=== PATIENT | female | born 1995 | race Hispanic/Latino ===

== ENCOUNTER 2019-02-20 22:36 | Emergency (ER) | payer BC, SELFPAY ==
[2019-02-21] MEDS ORDERED: NA CHLORIDE 0.9% 1,000 ML ONE (00:19)
[2019-02-21 01:10] LABS: Absolute Lymphocytes (CBC) 1.7 K/uL (0.7-4.9); Absolute Monocytes 0.6 K/uL (0.1-1.3); Absolute Neutrophil 6.2 K/uL (1.8-8.0); Basophils % 0.4 % (0-1.3); Eosinophils % 0.6 % (0-4.4); Hematocrit 29.7 % (36.0-45.0); Lymphocytes % 19.6 % (15.3-44.8); MPV 7.4 fL (7.6-11.3); Monocytes % 7.6 % (3.3-12.3); RBC Red Blood Cell Count 3.64 M/uL (3.86-4.86)
[2019-02-21 01:16] LABS: BUN Blood Urea Nitrogen 6 mg/dL (7-18); Bicarbonate 26 mmol/L (21-32); Glucose Level 106 mg/dL (74-106); Potassium 3.7 mmol/L (3.5-5.1); Sodium Level 141 mmol/L (136-145)
[2019-02-21] MEDS ORDERED: MORPHINE 2 MG/ML SYR ONE (01:40)
[2019-02-21] MEDS ORDERED: ONDANSETRON 4 MG/2 ML VIAL ONE (01:40)
--- NOTE | 2019-02-21 01:53 | ER ---
Nurse's Notes [facility] Name: Mona Jett Age: 23 yrs Sex: Female : 1995 Arrival Date: 02/20/2019 Time: 22:41 Bed 20 Private MD: Diagnosis: related conditions, unspecified, second trimester; related conditions, unspecified, third trimester;Abdominal tenderness;Anemia, unspecified Presentation: 02/20 22:43 Presenting complaint: Patient states: Sharp RLQ pain for the last 5 weeks, pt is 27 la1 weeks . PT cleared by Labor and delivery including cath urine. Transition of care: patient was not received from another setting of care. Onset of symptoms was February 20, 2019. Risk Assessment: Do you want to hurt yourself or someone else? Patient reports no desire to harm self or others. Initial Sepsis Screen: Does the patient meet any 2 criteria? No. Patient's initial sepsis screen is negative. Does the patient have a suspected source of infection? No. Patient's initial sepsis screen is negative. Care prior to arrival: None. 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 - Social history:: Smoking status: Patient/guardian denies using tobacco. - Ebola Screening: : No symptoms or risks identified at this time. - Family history:: not pertinent. Screenin/28 00:15 Abuse screen: Denies threats or abuse. Denies injuries from another. Nutritional rr5 screening: No deficits noted. Tuberculosis screening: No symptoms or risk factors identified. Fall Risk IV access (20 points). Total Arboleda Fall Scale indicates No Risk (0-24 pts). Assessment: 00:05 General: Appears in no apparent distress. uncomfortable, Behavior is calm, cooperative, rr5 appropriate for age. Pain: Complains of pain in right lower quadrant Pain does not radiate. Pain currently is 6 out of 10 on a pain scale. Quality of pain is described as aching, Pain began gradually, Is intermittent. 00:05 Neuro: Level of Consciousness is awake, alert, obeys commands, Oriented to person, rr5 place, time, situation, Appropriate for age. Cardiovascular: Capillary refill < 3 seconds Patient's skin is warm and dry. Respiratory: Airway Respiratory effort is even, unlabored, Respiratory pattern is regular, symmetrical. GI: Abdomen is round Bowel sounds present X 4 quads. 27 weeks . : No signs and/or symptoms were reported regarding the genitourinary system. EENT: No signs and/or symptoms were reported regarding the EENT system. Derm: Skin is intact, Skin temperature is warm. Musculoskeletal: Capillary refill < 3 seconds, Range of motion: intact in all extremities. 01:00 Reassessment: Patient appears in no apparent distress at this time. Patient is alert, rr5 oriented x 3, equal unlabored respirations, skin warm/dry/pink. awaiting for result. no complaints made. 01:20 Reassessment: Patient appears in no apparent distress at this time. chatting with her rr5 traffic engineering director at bedside. 02:05 Reassessment: Patient appears in no apparent distress at this time. Patient is alert, rr5 oriented x 3, equal unlabored respirations, skin warm/dry/pink. pain free as verbalized. for transfer to [facility]. Patient states feeling better. Patient states symptoms have improved. 03:15 Reassessment: endorsed to [facility] vitally stable. no complaints made. with IV cannula rr5 intact. Vital Signs: 02/20 22:44 Pulse 77; Resp 18; Temp 98.4(TE); Pulse Ox 100% on R/A; Weight 58.97 kg; Height 5 ft. 0 la1 in. (152.40 cm); Pain 6/10; 22:46 BP 106 / 70; la1 02/21 00:00 BP 105 / 65; Pulse 75; Resp 17; Pulse Ox 98% on R/A; rr5 01:00 BP 102 / 66; Pulse 71; Resp 18; Temp 98.1; Pulse Ox 100% ; rr5 02:14 BP 100 / 69; Pulse 71; Resp 17; Temp 98; Pulse Ox 99% ; Pain 0/10; rr5 03:06 BP 103 / 71; Pulse 75; Resp 17; Pulse Ox 98% on R/A; rr5 02/20 22:44 Body Mass Index 25.39 (58.97 kg, 152.40 cm) la1 Vitals: 00:15 Heart Tones 152 bpm. rr5 ED Course: 02/20 22:41 Patient arrived in ED. mr 22:44 Triage completed. la1 22:46 Arm band placed on left wrist. la1 23:52 Mele Andrews MD is Attending Physician. dianna 02/21 00:04 Mj Walton RN is Primary Nurse. rr5 00:10 Patient has correct armband on for positive identification. Placed in gown. Bed in low rr5 position. Call light in reach. Side rails up X 1. 00:16 Inserted saline lock: 20 gauge in right antecubital area, using aseptic technique. oe Blood collected. 02:30 No provider procedures requiring assistance completed. Patient transferred, IV remains rr5 in place. intact, No redness/swelling at site. Administered Medications: 00:10 Drug: NS 0.9% 1000 ml Route: IV; Rate: 1 bolus; Site: right antecubital; rr5 01:20 Follow up: Response: No adverse reaction; IV Status: Completed infusion; IV Intake: rr5 1000ml 01:20 Drug: Zofran 4 mg Route: IVP; Site: right antecubital; rr5 02:44 Follow up: Response: No adverse reaction rr5 01:22 Drug: morphine 2 mg Route: IVP; Site: right antecubital; rr5 02:45 Follow up: Response: No adverse reaction rr5 02:45 Not Given (pain free as verbalized): morphine 2 mg IVP once rr5 Intake: 01:20 IV: 1000ml; Total: 1000ml. rr5 02:30 voided freely rr5 Output: 02:30 Other: 1; Total: 0ml. rr5 02:30 voided freely rr5 Outcome: 01:53 ER care complete, transfer ordered by . [facility] 02:30 Transferred by ground EMS to [facility], Transfer form rr5 completed. Note: spoke to [facility] staff and accepted the case 02:30 Condition: stable 02:30 Instructed on the need for transfer. 03:19 Patient left the ED. rr5 Signatures: Mele Andrews MD MD cha Rivera, Geraldine mr Tomasz Vazquez RN RN la1 Nickolas Little Raymond, RN RN rr5 Corrections: (The following items were deleted from the chart) 02/20 22:47 22:43 Presenting complaint: Patient states: Sharp RLQ pain for the last 5 weeks, pt is la1 27 weeks . la1
--- NOTE | 2019-02-21 01:53 | EDPHYS ---
Physician Documentation [facility] Name: Mona Jett Age: 23 yrs Sex: Female : 1995 Arrival Date: 02/20/2019 Time: 22:41 Bed 20 Private MD: ED Physician Mele Andrews HPI: 02/21 00:36 This 23 yrs old Female presents to ER via Ambulatory with complaints of 27 wks dianna , Abdominal Pain. 00:36 The patient presents to the emergency department with abdominal pain, of the right dianna lower quadrant, that started 35 day(s) ago. The estimated gestational age is 27 weeks. course: care: at a clinic. Previous pregnancies: the patient has never been . Associated signs and symptoms: The patient has no apparent associated signs or symptoms. The patient has not experienced similar symptoms in the past. 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 - Social history:: Smoking status: Patient/guardian denies using tobacco. - Ebola Screening: : No symptoms or risks identified at this time. - Family history:: not pertinent. ROS: 02/21 00:36 Constitutional: Negative for fever, chills, and weight loss, Eyes: Negative for injury, dianna pain, redness, and discharge, ENT: Negative for injury, pain, and discharge, Neck: Negative for injury, pain, and swelling, Cardiovascular: Negative for chest pain, palpitations, and edema, Respiratory: Negative for shortness of breath, cough, wheezing, and pleuritic chest pain, Back: Negative for injury and pain, : Negative for injury, bleeding, discharge, and swelling, MS/Extremity: Negative for injury and deformity, Skin: Negative for injury, rash, and discoloration, Neuro: Negative for headache, weakness, numbness, tingling, and seizure, Psych: Negative for depression, anxiety, suicide ideation, homicidal ideation, and hallucinations, Allergy/Immunology: Negative for hives, rash, and allergies, Endocrine: Negative for neck swelling, polydipsia, polyuria, polyphagia, and marked weight changes, Hematologic/Lymphatic: Negative for swollen nodes, abnormal bleeding, and unusual bruising. Abdomen/GI: Positive for abdominal pain, of the right lower quadrant. Exam: 00:36 Constitutional: This is a well developed, well nourished patient who is awake, alert, dianna and in no acute distress. Head/Face: Normocephalic, atraumatic. Eyes: Pupils equal round and reactive to light, extra-ocular motions intact. Lids and lashes normal. Conjunctiva and sclera are non-icteric and not injected. Cornea within normal limits. Periorbital areas with no swelling, redness, or edema. ENT: Nares patent. No nasal discharge, no septal abnormalities noted. Tympanic membranes are normal and external auditory canals are clear. Oropharynx with no redness, swelling, or masses, exudates, or evidence of obstruction, uvula midline. Mucous membranes moist. Neck: Trachea midline, no thyromegaly or masses palpated, and no cervical lymphadenopathy. Supple, full range of motion without nuchal rigidity, or vertebral point tenderness. No Meningismus. Chest/axilla: Normal chest wall appearance and motion. Nontender with no deformity. No lesions are appreciated. Cardiovascular: Regular rate and rhythm with a normal S1 and S2. No gallops, murmurs, or rubs. Normal PMI, no JVD. No pulse deficits. Respiratory: Lungs have equal breath sounds bilaterally, clear to auscultation and percussion. No rales, rhonchi or wheezes noted. No increased work of breathing, no retractions or nasal flaring. Back: No spinal tenderness. No costovertebral tenderness. Full range of motion. Female : Normal external genitalia. Skin: Warm, dry with normal turgor. Normal color with no rashes, no lesions, and no evidence of cellulitis. MS/ Extremity: Pulses equal, no cyanosis. Neurovascular intact. Full, normal range of motion. Neuro: Awake and alert, GCS 15, oriented to person, place, time, and situation. Cranial nerves II-XII grossly intact. Motor strength 5/5 in all extremities. Sensory grossly intact. Cerebellar exam normal. Normal gait. Psych: Awake, alert, with orientation to person, place and time. Behavior, mood, and affect are within normal limits. 00:36 Abdomen/GI: Inspection: gravid appearance, Bowel sounds: normal, Palpation: moderate abdominal tenderness, in the right lower quadrant, Liver: no appreciated palpable abnormalities, Hernia: not appreciated. Vital Signs: 02/20 22:44 Pulse 77; Resp 18; Temp 98.4(TE); Pulse Ox 100% on R/A; Weight 58.97 kg; Height 5 ft. 0 la1 in. (152.40 cm); Pain 6/10; 22:46 BP 106 / 70; la1 02/21 00:00 BP 105 / 65; Pulse 75; Resp 17; Pulse Ox 98% on R/A; rr5 01:00 BP 102 / 66; Pulse 71; Resp 18; Temp 98.1; Pulse Ox 100% ; rr5 02:14 BP 100 / 69; Pulse 71; Resp 17; Temp 98; Pulse Ox 99% ; Pain 0/10; rr5 03:06 BP 103 / 71; Pulse 75; Resp 17; Pulse Ox 98% on R/A; rr5 02/20 22:44 Body Mass Index 25.39 (58.97 kg, 152.40 cm) la1 MDM: 02/20 23:52 Patient medically screened. [facility] 02/21 00:38 Data reviewed: vital signs, nurses notes, lab test result(s), radiologic studies, dianna ultrasound. 02/20 23:55 Order name: Abo/rh Typing; Complete Time: 01:48 [facility] 02/20 23:55 Order name: Basic Metabolic Panel; Complete Time: 01:39 [facility] 02/20 23:55 Order name: CBC with Diff; Complete Time: 01:39 [facility] 02/20 23:55 Order name: Urine Culture [facility] 02/21 02:32 Order name: Urine Dipstick--Ancillary (enter results) 02/21 02:32 Order name: Urine --Ancillary (enter results) 02/20 23:55 Order name: Urine Test (obtain specimen); Complete Time: 02:33 [facility] 02/20 23:55 Order name: IV Saline Lock; Complete Time: 00:15 [facility] 02/20 23:55 Order name: Labs collected and sent; Complete Time: 00:15 [facility] 02/21 00:36 Order name: US OB Limited [facility] 02/20 23:55 Order name: NPO; Complete Time: 00:29 [facility] 02/20 23:55 Order name: Urine Dipstick-Ancillary (obtain specimen); Complete Time: 02:33 [facility] 02/20 23:55 Order name: FHT's; Complete Time: 00:29 [facility] Administered Medications: 00:10 Drug: NS 0.9% 1000 ml Route: IV; Rate: 1 bolus; Site: right antecubital; rr5 01:20 Follow up: Response: No adverse reaction; IV Status: Completed infusion; IV Intake: rr5 1000ml 01:20 Drug: Zofran 4 mg Route: IVP; Site: right antecubital; rr5 02:44 Follow up: Response: No adverse reaction rr5 01:22 Drug: morphine 2 mg Route: IVP; Site: right antecubital; rr5 02:45 Follow up: Response: No adverse reaction rr5 02:45 Not Given (pain free as verbalized): morphine 2 mg IVP once rr5 Disposition: 02/21/19 01:53 Transfer ordered to [facility]. Diagnosis are related conditions, unspecified, second trimester, related conditions, unspecified, third trimester, Abdominal tenderness, Anemia, unspecified. - Reason for transfer: Higher level of care. - Accepting physician is to [facility] global compensation director. - Condition is Fair. - Problem is new. - Symptoms have improved. Signatures: Dispatcher [employer] EDMele Lopez MD MD cha Attema, Lee RN RN la1 Mj Walton RN RN rr5 Corrections: (The following items were deleted from the chart) 02:02 01:53 02/21/2019 01:53 Transfer ordered to [facility]. Diagnosis is dianna related conditions, unspecified, second trimester; related conditions, unspecified, third trimester; Abdominal tenderness. Reason for transfer: Higher level of care. Accepting physician is to [facility] global compensation director. Condition is Fair. Problem is new. Symptoms have improved. [facility] 03:19 02:02 02/21/2019 01:53 Transfer ordered to [facility]. Diagnosis is rr5 related conditions, unspecified, second trimester; related conditions, unspecified, third trimester; Abdominal tenderness; Anemia, unspecified. Reason for transfer: Higher level of care. Accepting physician is to [facility] global compensation director. Condition is Fair. Problem is new. Symptoms have improved. dianna
[2019-02-21 04:41] LABS: Urine Blood NEGATIVE (NEG); Urine Glucose NEGATIVE (NEG); Urine Protein NEGATIVE (NEG); Urine Specific Gravity 1.015 (1.005-1.030)
== END 2019-02-21 03:19 | disposition short-term general hospital (02) ==
LOC: ER 22:36
DX: O99.012 Anemia complicating pregnancy, second trimester (principal); D64.9 Anemia, unspecified; Z3A.27 27 weeks gestation of pregnancy; Z88.8 Allergy status to other drugs, medicaments and biological substances
CPT/HCPCS: 36415; 80048; 81003; 81025; 85025; 86900; 86901; 87086; 87088; J2270; J2405; J7030

== ENCOUNTER 2022-05-02 23:25 | Emergency (ER) | payer BC ==
--- NOTE | 2022-05-03 01:24 | EDPHYS ---
Physician Documentation [facility] Name: Mona Jett Age: 26 yrs Sex: Female : 1995 Arrival Date: 05/02/2022 Time: 23:28 Bed 17 Private MD: ED Physician Mele Andrews HPI: 05/03 01:20 This 26 yrs old Female presents to ER via Ambulatory with complaints of LRQ dianna pain. 01:20 The patient presents with abdominal pain in the left lower quadrant. Onset: The dianna symptoms/episode began/occurred yesterday. The symptoms do not radiate. Associated signs and symptoms: none. The symptoms are described as crampy. Modifying factors: The symptoms are alleviated by nothing, the symptoms are aggravated by nothing. Severity of pain: At its worst the pain was mild in the emergency department the pain has resolved. The patient has not experienced similar symptoms in the past. 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 - Social history:: Smoking status: Patient denies any tobacco usage or history of. Patient/guardian denies using alcohol. - Family history:: not pertinent. ROS: 05/03 01:20 Constitutional: Negative for fever, chills, and weight loss, Eyes: Negative for injury, dianna pain, redness, and discharge, ENT: Negative for injury, pain, and discharge, Neck: Negative for injury, pain, and swelling, Cardiovascular: Negative for chest pain, palpitations, and edema, Respiratory: Negative for shortness of breath, cough, wheezing, and pleuritic chest pain, Back: Negative for injury and pain, : Negative for injury, bleeding, discharge, and swelling, MS/Extremity: Negative for injury and deformity, Skin: Negative for injury, rash, and discoloration, Neuro: Negative for headache, weakness, numbness, tingling, and seizure. Abdomen/GI: Positive for abdominal pain, of the left lower quadrant. Exam: 01:20 Constitutional: This is a well developed, well nourished patient who is awake, alert, dianna and in no acute distress. Head/Face: Normocephalic, atraumatic. Eyes: Pupils equal round and reactive to light, extra-ocular motions intact. Lids and lashes normal. Conjunctiva and sclera are non-icteric and not injected. Cornea within normal limits. Periorbital areas with no swelling, redness, or edema. ENT: Nares patent. No nasal discharge, no septal abnormalities noted. Tympanic membranes are normal and external auditory canals are clear. Oropharynx with no redness, swelling, or masses, exudates, or evidence of obstruction, uvula midline. Mucous membranes moist. Neck: Trachea midline, no thyromegaly or masses palpated, and no cervical lymphadenopathy. Supple, full range of motion without nuchal rigidity, or vertebral point tenderness. No Meningismus. Chest/axilla: Normal chest wall appearance and motion. Nontender with no deformity. No lesions are appreciated. Cardiovascular: Regular rate and rhythm with a normal S1 and S2. No gallops, murmurs, or rubs. Normal PMI, no JVD. No pulse deficits. Respiratory: Lungs have equal breath sounds bilaterally, clear to auscultation and percussion. No rales, rhonchi or wheezes noted. No increased work of breathing, no retractions or nasal flaring. Abdomen/GI: Soft, non-tender, with normal bowel sounds. No distension or tympany. No guarding or rebound. No evidence of tenderness throughout. Back: No spinal tenderness. No costovertebral tenderness. Full range of motion. Female : Normal external genitalia. Skin: Warm, dry with normal turgor. Normal color with no rashes, no lesions, and no evidence of cellulitis. MS/ Extremity: Pulses equal, no cyanosis. Neurovascular intact. Full, normal range of motion. Neuro: Awake and alert, GCS 15, oriented to person, place, time, and situation. Cranial nerves II-XII grossly intact. Motor strength 5/5 in all extremities. Sensory grossly intact. Cerebellar exam normal. Normal gait. Psych: Awake, alert, with orientation to person, place and time. Behavior, mood, and affect are within normal limits. Vital Signs: 05/02 23:43 BP 124 / 84; Pulse 59; Resp 18; Temp 97.7(TE); Pulse Ox 99% on R/A; Weight 58.97 kg; ld1 Height 5 ft. 0 in. (152.40 cm); Pain 9/10; 23:43 Body Mass Index 25.39 (58.97 kg, 152.40 cm) ld1 MDM: 05/03 00:57 Patient medically screened. [facility] 01:22 Differential diagnosis: non-specific abd pain, urinary tract infection. Data reviewed: [facility] vital signs, nurses notes. Data interpreted: awake overnight monitor: rate is 59 beats/min, rhythm is regular, Pulse oximetry: on room air is 99 %. Counseling: I had a detailed discussion with the patient and/or guardian regarding: the historical points, exam findings, and any diagnostic results supporting the discharge/admit diagnosis. Medical screen evaluation completed. EMTALA emergency medical condition absent. Administered Medications: No medications were administered Disposition Summary: 05/03/22 01:24 Discharge Ordered Location: Home [facility] Problem: new dianna Symptoms: have improved dianna Condition: Stable dianna Diagnosis - Pelvic and perineal pain - sp 1 week dianna Followup: dianna - With: Private Physician - When: 1 - 2 days - Reason: Recheck today's complaints, Continuance of care, Re-evaluation by your physician Discharge Instructions: - Discharge Summary Sheet dianna - Abdominal Pain, Adult dianna - Pain Without a Known Cause dianna - Pelvic Pain, Female dianna - Pelvic Pain, Female, [id number] dianna Forms: - Medication Reconciliation Form dianna - Thank You Letter dianna - Antibiotic Education dianna - Prescription Opioid Use dianna Signatures: Mele Andrews MD MD cha Dibbern, Lauren, RN RN ld1
--- NOTE | 2022-05-03 01:24 | ER ---
Nurse's Notes [facility] Name: Mona Jett Age: 26 yrs Sex: Female : 1995 Arrival Date: 05/02/2022 Time: 23:28 Bed 17 Private MD: Diagnosis: Pelvic and perineal pain-sp 1 week Presentation: 05/02 23:43 Chief complaint: Patient states: RLQ pain X 1 hour. Pt reports recent . Never had ld1 this pain before. Coronavirus screen: At this time, the client does not indicate any symptoms associated with coronavirus-19. Ebola Screen: No symptoms or risks identified at this time. Initial Sepsis Screen: Does the patient meet any 2 criteria? No. Patient's initial sepsis screen is negative. Does the patient have a suspected source of infection? No. Patient's initial sepsis screen is negative. Risk Assessment: Do you want to hurt yourself or someone else? Patient reports no desire to harm self or others. Onset of symptoms was May 02, 2022. 23:43 Method Of Arrival: Ambulatory ld1 23:43 Acuity: MACY 3 ld1 Triage Assessment: 23:44 General: Appears in no apparent distress. comfortable, Behavior is calm, cooperative, ld1 appropriate for age. Pain: Complains of pain in right lower quadrant and right femoral area Pain does not radiate. Pain currently is 9 out of 10 on a pain scale. Quality of pain is described as sharp, shooting, throbbing. EENT: No signs and/or symptoms were reported regarding the EENT system. Neuro: Level of Consciousness is awake, alert, obeys commands, Oriented to person, place, time, situation. Cardiovascular: Capillary refill < 3 seconds Patient's skin is warm and dry. Respiratory: Airway is patent Respiratory effort is even, unlabored. GI: Abdomen is round non-distended, Reports lower abdominal pain. : No signs and/or symptoms were reported regarding the genitourinary system. Derm: No signs and/or symptoms reported regarding the dermatologic system. Musculoskeletal: No signs and/or symptoms reported regarding the musculoskeletal system. 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 - Social history:: Smoking status: Patient denies any tobacco usage or history of. Patient/guardian denies using alcohol. - Family history:: not pertinent. Screenin/08 01:27 Abuse screen: Denies threats or abuse. Denies injuries from another. Nutritional sm5 screening: No deficits noted. Tuberculosis screening: No symptoms or risk factors identified. Fall Risk None identified. Assessment: 01:27 General: Appears in no apparent distress. Behavior is cooperative. Pain: Denies pain. sm5 Neuro: Level of Consciousness is awake, alert, obeys commands, Oriented to person, place, time, situation. Cardiovascular: Capillary refill < 3 seconds Patient's skin is warm and dry. Respiratory: Airway is patent Trachea midline Respiratory effort is even, unlabored. GI: Abdomen is non-distended, Patient currently denies diarrhea, nausea, vomiting. Vital Signs: 05/02 23:43 BP 124 / 84; Pulse 59; Resp 18; Temp 97.7(TE); Pulse Ox 99% on R/A; Weight 58.97 kg; ld1 Height 5 ft. 0 in. (152.40 cm); Pain 9/10; 23:43 Body Mass Index 25.39 (58.97 kg, 152.40 cm) ld1 ED Course: 23:28 Patient arrived in ED. mr 23:44 Triage completed. ld1 23:44 Arm band placed on right wrist. 1 05/03 00:54 Harriet Vazquez, SUREKHA is Primary Nurse. 5 00:57 Mele Andrews MD is Attending Physician. [facility] 01:27 No provider procedures requiring assistance completed. Patient did not have IV access sm5 during this emergency room visit. 01:28 Patient has correct armband on for positive identification. Bed in low position. Call sm5 light in reach. Side rails up X2. Administered Medications: No medications were administered Medication: :27 VIS not applicable for this client. 5 Outcome: 01:24 Discharge ordered by . [facility] 01:28 Discharged to home ambulatory, with significant other. 5 01:28 Condition: stable 01:28 Discharge instructions given to patient, significant other, Instructed on discharge instructions, follow up and referral plans. Demonstrated understanding of instructions, follow-up care. 01:28 Patient left the ED. sm5 Signatures: Mele Andrews MD MD cha Rivera, Mary mr Dibbern, Lauren, RN RN ld1 Harriet Vazquez RN RN sm5
[2022-05-03 02:37] VITALS: BP 124/84; TEMP 97.7; O2SAT 99
== END 2022-05-03 01:28 | disposition home or self-care (01) ==
LOC: ER 23:25
DX: R10.2 Pelvic and perineal pain (principal); Z88.8 Allergy status to other drugs, medicaments and biological substances